=== PATIENT | female | born 1995 | race Asian ===

== ENCOUNTER 2017-10-11 02:01 | Emergency (ER) | payer OTHER ==
[2017-10-11 02:16] VITALS: BP 129/82
[2017-10-11 02:27] LABS: HCG UR QUAL NEGATIVE
--- NOTE | 2017-10-11 02:40 | ED Physician Documentation ---
History of Present Illness - Stated complaint Stated Complaint: FEMALE - Chief complaint Chief Complaint: Abd Pain - Additonal information Additional information: 21-year-old female with no significant past medical history presents to the emergency department with irregular menses. She normally gets her. On the regular schedule this month her periods stopped 4 days ago and then seems to have begun again today. She reports that it is a usual amount of bleeding no worse than the regular. And she has some mild cramping. Review of Systems Constitutional: denies: Fever, Fatigue Throat: reports: Other (Recent antibiotics for tooth infection) GI: denies: Abdominal Pain, Nausea, Vomiting : reports: Irregular menses PD PAST MEDICAL HISTORY - Past Medical History Past Medical History: No - Past Surgical History Past Surgical History: No - Present Medications Home Medications: Ambulatory Orders Medication Instructions Recorded Confirmed Ibuprofen [Motrin] 800 mg PO Q8H PRN #30 tablet 09/28/16 10/11/17 - Allergies Allergies/Adverse Reactions: Allergies Allergy/AdvReac Type Severity Reaction Status Date / Time No Known Drug Allergies Allergy Verified 10/11/17 02:12 - Social History Does the pt smoke?: No Smoking Status: Never smoker Does the pt have substance abuse?: No PD ED PE NORMAL - Vitals Vital signs reviewed: Yes - General General: Alert and oriented X 3, No acute distress - HEENT HEENT: Other (normal conjunctiva ) - Neck Neck: Supple, no meningeal sign - Cardiac Cardiac: RRR, No murmur - Respiratory Respiratory: Clear bilaterally - Abdomen Abdomen: Normal bowel sounds, Soft, Non tender, Non distended - Female Female : Inhalation Therapy Teacher present (Oma), Other (mild dark blood in vaginal vault, cervix normal appearing) - Derm Derm: Warm and dry - Extremities Extremities: No deformity - Neuro Neuro: Alert and oriented X 3 - Psych Psych: Normal mood, Normal affect Results - Vitals Vitals: Vital Signs - 24 hr 10/11/17 02:13 Temperature 36.7 C Heart Rate 88 Respiratory 16 Rate Blood Pressure 129/82 H O2 Saturation 100 Oxygen O2 Source Room air - Labs Labs: Laboratory Tests 10/11/17 02:15 Ur Specific [place] <=1.005 Urine HCG, Qual NEGATIVE PD MEDICAL DECISION MAKING - ED course ED course: Irregular menses, without symptoms of anemia. Normal pelvic exam. Did not obtain swabs given reduced sensitivity when bleeding. I discussed this with the patient. Negative test Discussed with her return precautions for severe bleeding or pain, and follow- up with primary care or gynecology if symptoms do not resolve. Departure - Departure Disposition: 01 Home, Self Care Clinical Impression: Irregular uterine bleeding Condition: Good Instructions: ED Bleed Irregular Vaginal Comments: It is not clear why you are having menstrual bleeding that is irregular this month. This can be related to hormone changes or problems with your uterus. If your bleeding stops and your periods return to normal next month you do not need any specific follow-up if you continue to have bleeding you should follow- up with your primary care doctor or a boiler or engine operator. If you are having severe bleeding Or pain or feeling lightheaded or dizzy or having trouble breathing he should return to the emergency department.
== END 2017-10-11 02:43 | disposition home or self-care (01) ==
LOC: ED 02:01
DX: N92.6 Irregular menstruation, unspecified (principal)
CPT/HCPCS: 81025; 99283

== ENCOUNTER 2017-12-28 16:48 | Emergency (ER) | payer OTHER ==
[2017-12-28 17:00] VITALS: BP 107/69
[2017-12-28 17:33] LABS: BASOPHILS # (AUTO) 0.1 10^3/uL (0.0-0.1); BASOPHILS % (AUTO) 0.8 %; EOSINOPHILS # (AUTO) 0.3 10^3/uL (0.0-0.7); EOSINOPHILS % (AUTO) 3.9 %; HGB - HEMOGLOBIN 13.4 g/dL (12.0-16.0); LYMPHOCYTES # (AUTO) 2.2 10^3/uL (1.5-3.5); LYMPHOCYTES % (AUTO) 26.6 %; MEAN CORPUSCULAR HEMOGLOBIN 30.1 pg (27.0-31.0); MEAN CORPUSCULAR HGB CONC 33.4 g/dL (32.0-36.0); MEAN PLATELET VOLUME 8.4 fL (7.9-10.8); MONOCYTES % (AUTO) 12.2 %; NEUTROPHILS # (AUTO) 4.6 10^3/uL (1.5-6.6); NEUTROPHILS % (AUTO) 56.5 %; PLT - PLATELET COUNT 317 10^3/uL (130-450); RED BLOOD COUNT 4.47 10^6/uL (4.20-5.40); RED CELL DISTRIBUTION WIDTH 12.7 % (12.0-15.0); WHITE BLOOD COUNT 8.2 x10^3/uL (4.8-10.8)
[2017-12-28 17:41] LABS: ALBUMIN 4.5 g/dL (3.2-5.5); ALBUMIN/GLOBULIN RATIO 1.1 (1.0-2.2); BILIRUBIN,TOTAL 0.4 mg/dL (0.2-1.0); CALCIUM 9.7 mg/dL (8.5-10.3); CREATININE 0.6 mg/dL (0.4-1.0); TOTAL PROTEIN 8.5 g/dL (6.7-8.2)
--- NOTE | 2017-12-28 17:42 | ED Physician Documentation ---
History of Present Illness - Stated complaint Stated Complaint: DIARRHEA - Chief complaint Chief Complaint: Abd Pain - History obtained from History obtained from: Patient, Family - History of Present Illness Timing: How many days ago (3) Pain level max: 5 Pain level now: 4 Quality: cramping. Improved by: nothing Worsened by: eating - Additonal information Additional information: States abd cramping and diarrhea x 3 days. Significant other with same. States feeling fatigued today. Started after eating beef steak a few days ago. Does not use anything for control, is sexually active. Doesn't think she is . Review of Systems Ten Systems: 10 systems reviewed and negative Constitutional: denies: Fever, Chills Ears: denies: Ear pain Nose: denies: Rhinorrhea / runny nose, Congestion Throat: denies: Sore throat Cardiac: denies: Chest pain / pressure Respiratory: denies: Cough GI: denies: Nausea, Vomiting, Hematemesis, Bloody / black stool Skin: denies: Rash Musculoskeletal: denies: Neck pain, Back pain Neurologic: denies: Focal weakness, Numbness, Confused, Altered mental status PD PAST MEDICAL HISTORY - Past Medical History Past Medical History: No - Past Surgical History Past Surgical History: No - Present Medications Home Medications: Ambulatory Orders Medication Instructions Recorded Confirmed Dicyclomine [Bentyl] 10 mg PO QID PRN #20 capsule 12/28/17 - Allergies Allergies/Adverse Reactions: Allergies Allergy/AdvReac Type Severity Reaction Status Date / Time No Known Drug Allergies Allergy Verified 10/11/17 02:12 - Social History Does the pt smoke?: No Smoking Status: Never smoker Does the pt drink ETOH?: No Does the pt have substance abuse?: No - Immunizations Immunizations are current?: Yes PD ED PE NORMAL - Vitals Vital signs reviewed: Yes - General General: Alert and oriented X 3, No acute distress, Well developed/nourished - HEENT HEENT: Moist mucous membranes - Neck Neck: Supple, no meningeal sign - Cardiac Cardiac: RRR, Strong equal pulses - Respiratory Respiratory: No respiratory distress, Clear bilaterally - Abdomen Abdomen: Normal bowel sounds, Soft, Non tender, Non distended - Back Back: No CVA TTP - Derm Derm: Warm and dry, No rash - Neuro Neuro: Alert and oriented X 3 - Psych Psych: Normal mood, Normal affect Results - Vitals Vitals: Vital Signs - 24 hr 12/28/17 16:58 Temperature 37.0 C Heart Rate 82 Respiratory 16 Rate Blood Pressure 107/69 O2 Saturation 100 Oxygen O2 Source Room air - Labs Labs: Laboratory Tests 12/28/17 12/28/17 12/28/17 17:15 17:23 17:23 WBC 8.2 RBC 4.47 Hgb 13.4 Hct 40.2 MCV 90.0 MCH 30.1 MCHC 33.4 RDW 12.7 Plt Count 317 MPV 8.4 Neut # 4.6 Lymph # 2.2 [place] # 1.0 Eos # 0.3 Baso # 0.1 Absolute Nucleated RBC 0.00 Nucleated RBC % 0.1 Sodium 137 Potassium 3.8 Chloride 100 L Carbon Dioxide 24 Anion Gap 13.0 BUN 14 Creatinine 0.6 Estimated GFR (MDRD) 123 Glucose 82 Calcium 9.7 Total Bilirubin 0.4 AST 28 ALT 22 Alkaline Phosphatase 63 Total Protein 8.5 H Albumin 4.5 Globulin 4.0 Albumin/Globulin Ratio 1.1 Lipase 14 L Urine Color YELLOW Urine Clarity CLEAR Urine pH 5.5 Ur Specific [place] >=1.030 H Urine Protein NEGATIVE Urine Glucose (UA) NEGATIVE Urine Ketones NEGATIVE Urine Occult Blood NEGATIVE Urine Nitrite NEGATIVE Urine Bilirubin NEGATIVE Urine Urobilinogen 0.2 (NORMAL) Ur Leukocyte Esterase NEGATIVE Ur Microscopic Review NOT INDICATED Urine Culture Comments NOT INDICATED Urine HCG, Qual NEGATIVE PD MEDICAL DECISION MAKING - ED course Complexity details: reviewed results, re-evaluated patient, considered differential, d/w patient, d/w family ED course: Patient is a 22-year-old female who presents to the emergency department with diarrhea for the past few days. Her significant other is sick with same and has the same symptoms. No fevers. No vomiting. No recent antibiotics or travel. She is well-appearing, nontoxic. Well-hydrated. Tolerating p.o. without difficulty. Given Levsin for cramping. Will continue supportive care and follow-up with her doctor. Patient counseled regarding signs and symptoms for which I believe and urgent re-evaluation would be necessary. Patient with good understanding of and agreement to plan and is comfortable going home at this time This document was made in part using voice recognition software. While efforts are made to proofread this document, sound alike and grammatical errors may occur. Departure - Departure Disposition: 01 Home, Self Care Clinical Impression: Dehydration Diarrhea Qualifiers: Diarrhea type: unspecified type Qualified Code(s): R19.7 - Diarrhea, unspecified Condition: Good Instructions: ED Diarrhea Viral Follow-Up: your,doctor in 1 week if not better [Other] Prescriptions: Dicyclomine [Bentyl] 10 mg PO QID PRN #20 capsule PRN Reason: Abdominal Pain Comments: Return if you worsen. This should improve over the next few days. Drink plenty of fluids and rest. Discharge Date/Time: 12/28/17 18:04
[2017-12-28 17:49] LABS: BILIRUBIN,URINE NEGATIVE (NEGATIVE); GLUCOSE, URINE (UA) NEGATIVE (NEGATIVE); KETONES,URINE (UA) NEGATIVE (NEGATIVE); LEUKOCYTE ESTERASE, URINE NEGATIVE (NEGATIVE); NITRITE,URINE NEGATIVE (NEGATIVE); OCCULT BLOOD,URINE NEGATIVE (NEGATIVE); PH,URINE 5.5 PH (5.0-7.5); PROTEIN,URINE NEGATIVE (NEGATIVE); UROBILINOGEN,URINE 0.2 (NORMAL) E.U./dL (NORMAL)
[2017-12-28 17:51] LABS: CLARITY,URINE CLEAR (CLEAR)
[2017-12-28 17:53] LABS: HCG UR QUAL NEGATIVE
[2017-12-28] MEDS ORDERED: HYOSCYAMINE SL 0.125 MG TABLET SL STA (17:55)
== END 2017-12-28 18:04 | disposition home or self-care (01) ==
LOC: ED 16:48
DX: E86.0 Dehydration (principal); R19.7 Diarrhea, unspecified
CPT/HCPCS: 36415; 80053; 81003; 81025; 83690; 85025; 99283; 99284; A9270; 81001; 87086

== ENCOUNTER 2018-04-10 08:27 | Emergency (ER) | payer OTHER ==
--- NOTE | 2018-04-10 08:42 | ED Physician Documentation ---
PD HPI ABD PAIN - Stated complaint Stated Complaint: ABD PX - Chief complaint Chief Complaint: Abd Pain - History obtained from History obtained from: Patient - History of Present Illness Timing - onset: Today Timing - details: Gradual onset, Still present, Constant Quality: Cramping, Aching, Pain Location: RLQ Improved by: No: Eating Worsened by: No: Eating Associated symptoms: Nausea. No: Fever, Vomiting, Diarrhea, Constipation, Dysuria, Hematuria, Near syncope / syncope, Vaginal bleeding, Vaginal dc Similar symptoms before: Has not had sx before Recently seen: Not recently seen Review of Systems Constitutional: denies: Fever Nose: denies: Rhinorrhea / runny nose, Congestion Throat: denies: Sore throat Cardiac: denies: Chest pain / pressure, Palpitations Respiratory: denies: Dyspnea, Cough GI: reports: Abdominal Pain (just this morning), Nausea. denies: Vomiting, Constipation, Diarrhea : reports: LMP (1 month ago). denies: Dysuria, Frequency, Discharge, Vaginal bleeding, Missed period Skin: denies: Rash, Lesions Neurologic: denies: Generalized weakness, Focal weakness, Numbness, Near syncope PD PAST MEDICAL HISTORY - Past Medical History Cardiovascular: None Respiratory: None Neuro: None Endocrine/Autoimmune: None - Past Surgical History Past Surgical History: No - Present Medications Home Medications: Ambulatory Orders Medication Instructions Recorded Confirmed Naproxen 375 mg PO BID #15 tablet 04/10/18 Ondansetron Odt [Zofran] 4 mg TL Q6H PRN #10 tablet 04/10/18 Tramadol HCl 50 mg PO Q6H PRN #20 tablet 04/10/18 - Allergies Allergies/Adverse Reactions: Allergies Allergy/AdvReac Type Severity Reaction Status Date / Time No Known Drug Allergies Allergy Verified 04/10/18 08:42 - Social History Does the pt smoke?: No Smoking Status: Never smoker Does the pt drink ETOH?: No Does the pt have substance abuse?: No - Immunizations Immunizations are current?: Yes PD ED PE NORMAL - Vitals Vital signs reviewed: Yes - General General: Alert and oriented X 3, No acute distress, Well developed/nourished - HEENT HEENT: Moist mucous membranes, Pharynx benign - Neck Neck: Supple, no meningeal sign, No adenopathy - Cardiac Cardiac: RRR, No murmur - Respiratory Respiratory: Clear bilaterally - Abdomen Abdomen: Soft, Non distended, No organomegaly, Other (tender RLQ and lower suprapubic area) - Female Female : Deferred - Rectal Rectal: Deferred - Back Back: No CVA TTP - Derm Derm: Normal color, Warm and dry - Neuro Neuro: Alert and oriented X 3, No motor deficit, Normal speech Results - Vitals Vitals: Vital Signs - 24 hr 04/10/18 04/10/18 04/10/18 08:36 12:30 14:50 Temperature 36 C L Heart Rate 77 76 78 Respiratory 16 16 16 Rate Blood Pressure 106/61 98/63 98/51 L O2 Saturation 99 96 96 Oxygen O2 Source Room air - Labs Labs: Laboratory Tests 04/10/18 04/10/18 04/10/18 09:09 10:15 10:15 WBC 7.0 RBC 4.36 Hgb 13.3 Hct 39.9 MCV 91.5 MCH 30.5 MCHC 33.3 RDW 12.5 Plt Count 309 MPV 8.4 Neut # (Auto) 4.5 Lymph # (Auto) 1.8 Page # (Auto) 0.4 Eos # (Auto) 0.2 Baso # (Auto) 0.1 Absolute Nucleated RBC 0.00 Nucleated RBC % 0.0 Sodium 135 Potassium 3.6 Chloride 102 Carbon Dioxide 26 Anion Gap 7.0 BUN 13 Creatinine 0.6 Estimated GFR (MDRD) 123 Glucose 76 Calcium 9.1 Total Bilirubin 0.8 AST 27 ALT 20 Alkaline Phosphatase 69 Total Protein 8.4 H Albumin 4.3 Globulin 4.1 Albumin/Globulin Ratio 1.0 Lipase 33 Urine Color YELLOW Urine Clarity HAZY Urine pH 6.5 Ur Specific [place] 1.020 Urine Protein NEGATIVE Urine Glucose (UA) NEGATIVE Urine Ketones NEGATIVE Urine Occult Blood NEGATIVE Urine Nitrite NEGATIVE Urine Bilirubin NEGATIVE Urine Urobilinogen 0.2 (NORMAL) Ur Leukocyte Esterase TRACE H Urine RBC None Seen Urine WBC 11-25 H Ur Squamous Epith Cells FEW Squamous Urine Bacteria Moderate H Ur Microscopic Review INDICATED Urine Culture Comments INDICATED Urine HCG, Qual NEGATIVE - Rads (name of study) pelvic U/S Radiology: Prelim report reviewed (normal; no acute process) RLQ U/S limited Radiology: Prelim report reviewed (appendix not visualized; no secondary changes seen) A/P CT Radiology: Prelim report reviewed (normal appendix. possible cyst on ovary. no other acute process. ) PD MEDICAL DECISION MAKING - ED course Complexity details: reviewed results (got U/S initially and normal pelvis and did not see the appendix. Talked with patient and recheck abd is still tneder RLQ, so shared decision of CT scan. This showed normal appendix. So not an answer for the cause of the pain. ), considered differential, d/w patient - Sepsis Event Vital Signs: Vital Signs - 24 hr 04/10/18 04/10/18 04/10/18 08:36 12:30 14:50 Temperature 36 C L Heart Rate 77 76 78 Respiratory 16 16 16 Rate Blood Pressure 106/61 98/63 98/51 L O2 Saturation 99 96 96 Oxygen O2 Source Room air Departure - Departure Disposition: 01 Home, Self Care Clinical Impression: Abdominal pain Qualifiers: Abdominal location: right lower quadrant Qualified Code(s): R10.31 - Right lower quadrant pain Condition: Stable Record reviewed to determine appropriate education?: Yes Instructions: ED Abdominal Pain Unkn Cause Follow-Up: [facility] [Provider Group] Prescriptions: Naproxen 375 mg PO BID #15 tablet Ondansetron Odt [Zofran] 4 mg TL Q6H PRN #10 tablet PRN Reason: Nausea / Vomiting Tramadol HCl 50 mg PO Q6H PRN #20 tablet PRN Reason: Pain Comments: Frequent fluids and bland food today. There is not a clear answer for the cause of your pain today. The tests seem to exclude significant or serious causes. At this point I try some anti-inflammatories such as naproxen or ibuprofen 2-3 times a day for the next several days. Add ondansetron if needed for nausea. Add tramadol if needed for worse pain. Recheck if not better over the next couple of days and return sooner if worsening symptoms or other symptoms develop. Forms: Activity restrictions Discharge Date/Time: 04/10/18 14:45
[2018-04-10] MEDS ORDERED: SODIUM CHLORIDE 0.9% 1,000 ML IV ONE ×2 (09:17→12:35)
[2018-04-10] MEDS ORDERED: MORPHINE 10 MG/ML VIAL IVP STA (09:18)
[2018-04-10] MEDS ORDERED: ONDANSETRON 4 MG/2 ML VIAL IVP STA ×2 (09:18→14:07)
[2018-04-10 09:50] LABS: BILIRUBIN,URINE NEGATIVE (NEGATIVE); GLUCOSE, URINE (UA) NEGATIVE (NEGATIVE); KETONES,URINE (UA) NEGATIVE (NEGATIVE); LEUKOCYTE ESTERASE, URINE TRACE (NEGATIVE); NITRITE,URINE NEGATIVE (NEGATIVE); OCCULT BLOOD,URINE NEGATIVE (NEGATIVE); PH,URINE 6.5 PH (5.0-7.5); PROTEIN,URINE NEGATIVE (NEGATIVE); UROBILINOGEN,URINE 0.2 (NORMAL) E.U./dL (NORMAL)
[2018-04-10 09:52] LABS: CLARITY,URINE HAZY (CLEAR); HCG UR QUAL NEGATIVE
[2018-04-10 10:09] LABS: BACTERIA,URINE Moderate /HPF (None Seen); RBC,URINE None Seen /HPF (0-5); SQUAMOUS EPITHELIAL CELL,UR FEW Squamous (<= Few)
[2018-04-10 10:23] LABS: BASOPHILS # (AUTO) 0.1 10^3/uL (0.0-0.1); BASOPHILS % (AUTO) 1.1 %; EOSINOPHILS # (AUTO) 0.2 10^3/uL (0.0-0.7); EOSINOPHILS % (AUTO) 3.1 %; HGB - HEMOGLOBIN 13.3 g/dL (12.0-16.0); LYMPHOCYTES # (AUTO) 1.8 10^3/uL (1.5-3.5); LYMPHOCYTES % (AUTO) 26.2 %; MEAN CORPUSCULAR HEMOGLOBIN 30.5 pg (27.0-31.0); MEAN CORPUSCULAR HGB CONC 33.3 g/dL (32.0-36.0); MEAN CORPUSCULAR VOLUME 91.5 fL (81.0-99.0); MEAN PLATELET VOLUME 8.4 fL (7.9-10.8); MONOCYTES # (AUTO) 0.4 10^3/uL (0.0-1.0); NEUTROPHILS # (AUTO) 4.5 10^3/uL (1.5-6.6); NEUTROPHILS % (AUTO) 63.6 %; PLT - PLATELET COUNT 309 10^3/uL (130-450); RED BLOOD COUNT 4.36 10^6/uL (4.20-5.40); RED CELL DISTRIBUTION WIDTH 12.5 % (12.0-15.0)
[2018-04-10 10:36] LABS: ALBUMIN 4.3 g/dL (3.2-5.5); BILIRUBIN,TOTAL 0.8 mg/dL (0.2-1.0); CALCIUM 9.1 mg/dL (8.5-10.3); CREATININE 0.6 mg/dL (0.4-1.0); TOTAL PROTEIN 8.4 g/dL (6.7-8.2)
--- NOTE | 2018-04-10 11:50 | Ultrasound Report ---
Procedure Date: 04/10/2018 Accession Number: [id number] / [id number] Procedure: US - Abdomen Limited CPT Code: FULL RESULT: EXAM: ABDOMEN ULTRASOUND LIMITED CLINICAL HISTORY: Right lower quadrant pain COMPARISON: None. TECHNIQUE: Real-time scanning was performed with static images obtained. FINDINGS: Scanning of the right lower quadrant does not demonstrate the appendix. No abnormal fluid collection is identified. No adenopathy is seen. IMPRESSION: Nonvisualization of the appendix, but no secondary findings of acute appendicitis. RADIA
--- NOTE | 2018-04-10 11:53 | Ultrasound Report ---
Procedure Date: 04/10/2018 Accession Number: [id number] / [id number] Procedure: US - Pelvic w/Transvag+Doppler Ltd CPT Code: FULL RESULT: EXAM: PELVIC ULTRASOUND WITH DOPPLERS Pelvic w/Transvag+Doppler Ltd CLINICAL HISTORY: Right lower quadrant pain COMPARISON: None. TECHNIQUE: Real-time transabdominal and transvaginal scanning, with customer service representative teller static images obtained. Color flow imaging and Doppler spectral analysis was performed to evaluate blood flow to the ovaries given right lower quadrant pain. FINDINGS: Uterus: 7.6 x 5.3 x 5.3 cm, volume 112 cc. Anteverted position. Normal overall size and echotexture. Masses: None. Endometrium: 15 mm. Normal. Cervix: Unremarkable. Right Ovary: 4.4 x 3.4 x 2.4 cm, volume 19 cc. Normal echotexture. Right Ovary: Arterial and venous blood flow are present. Adnexa are unremarkable. Left Ovary: 3.4 x 2.2 x 1.7 cm, volume 7 cc. Normal echotexture. Left Ovary: Arterial and venous blood flow are present. Adnexa are unremarkable. Free Fluid: Small amount. Other: None. IMPRESSION: 1. Normal pelvic ultrasound. 2. Arterial and venous blood flow are present to the ovaries bilaterally. 3. Small amount of free fluid, likely physiologic. RADIA
[2018-04-10] MEDS ORDERED: IOPAMIDOL-300 100 ML VIAL ONE (13:09)
--- NOTE | 2018-04-10 13:30 | CT Report ---
Procedure Date: 04/10/2018 Accession Number: [id number] / [id number] Procedure: CT - Abdomen/Pelvis W/ CPT Code: FULL RESULT: EXAM: CT ABDOMEN AND PELVIS EXAM DATE: 04/10/2018 01:15 PM. CLINICAL HISTORY: RLQ pain today. COMPARISONS: None. TECHNIQUE: Routine helical CT imaging was performed through the abdomen and pelvis. IV contrast: ISOVUE 300 90mL. Enteric contrast: No. Reconstructions: Coronal and sagittal. In accordance with CT protocol optimization, one or more of the following dose reduction techniques were utilized for this exam: automated exposure control, adjustment of mA and/or KV based on patient size, or use of iterative reconstructive technique. FINDINGS: Lung Bases: Unremarkable. Liver: Normal. No masses. Gallbladder/Bile Ducts: Unremarkable. Spleen: Normal. Pancreas: Normal. Adrenal Glands: Normal. Kidneys: Normal. No masses or hydronephrosis. Peritoneal Cavity/Bowel: No bowel obstruction. No acute focal inflammatory change identified. No discrete collection. No bulky adenopathy. No free air. Small amount of free fluid in the pelvis. Appendix is limited in assessment secondary to adjacent bowel loops, although appears to be normal caliber. Pelvic Organs: Urinary bladder appears unremarkable. Mildly dense rounded structure in the right adnexal region, possibly ovarian. Uterus and adnexal structures otherwise appear unremarkable. Small amount of free fluid in the pelvis. Vasculature: No aneurysms or other significant abnormality. Bones: No significant abnormality. Other: None. IMPRESSION: 1. Dense rounded structure in the right adnexal region measuring approximately 2 cm, which may be ovarian. Small amount of free fluid in the pelvis, likely physiologic. Uterus and ovaries would be better assessed with ultrasound, as clinically warranted. 2. Appendix is mildly limited assessment secondary to compressing adjacent bowel loops, although appears to be normal caliber. 3. No bowel obstruction or acute focal inflammatory change identified in the abdomen or pelvis. RADIA
[2018-04-10] MEDS ORDERED: KETOROLAC 60 MG/2 ML VIAL IVP STA (13:35)
[2018-04-10 14:52] VITALS: BP 98/51
[2018-04-10] MEDS ORDERED: IOPAMIDOL-300 100 ML VIAL IVP ONE (16:00)
== END 2018-04-10 14:45 | disposition home or self-care (01) ==
LOC: ED 08:27
DX: R10.31 Right lower quadrant pain (principal); R11.0 Nausea
CPT/HCPCS: 36415; 74177; 76705; 76830; 76856; 80053; 81001; 81025; 83690; 85025; 87077; 87086; 87181; 93976; 96361; 96374; 96375; 96376; 99283; Q9967; 81003

== ENCOUNTER 2018-05-23 14:04 | Emergency (ER) | payer OTHER ==
[2018-05-23 14:13] VITALS: BP 111/70
--- NOTE | 2018-05-23 14:20 | ED Physician Documentation ---
PD HPI FEMALE - Stated complaint Stated Complaint: FEMALE - Chief complaint Chief Complaint: UTI - History obtained from History obtained from: Patient, Family (spouse) - History of Present Illness Timing - onset: Last night Timing - details: Still present Associated symptoms: Dysuria, Urinary frequency Similar symptoms before: Diagnosis (Similar symptoms in the past with UTI.) - Additional information Additional information: The patient is a 22-year-old female who presents with dysuria and frequency of urination that started last night. She denies fever, nausea or vomiting. Her last menstrual period was 1-1/2 weeks ago. She was treated for urinary tract infection 5 weeks ago when her urine culture grew out Citrobacter that was sensitive to all antibiotics commonly used for UTI, except for nitrofurantoin. Review of Systems Constitutional: denies: Fever Nose: denies: Congestion Throat: denies: Sore throat Respiratory: denies: Dyspnea, Cough GI: denies: Abdominal Pain, Nausea, Vomiting : reports: Dysuria, Frequency, LMP (1.5 weeks ago.) Skin: denies: Rash Musculoskeletal: denies: Back pain Neurologic: denies: Headache PD PAST MEDICAL HISTORY - Past Medical History Cardiovascular: None Respiratory: None Neuro: None Endocrine/Autoimmune: None - Past Surgical History Past Surgical History: No - Present Medications Home Medications: Ambulatory Orders Medication Instructions Recorded Confirmed Naproxen 375 mg PO BID #15 tablet 04/10/18 Ondansetron Odt [Zofran] 4 mg TL Q6H PRN #10 tablet 04/10/18 Tramadol HCl 50 mg PO Q6H PRN #20 tablet 04/10/18 Phenazopyridine HCl [Pyridium] 200 mg PO TID PRN #10 tablet 05/23/18 cephALEXin [Cephalexin] 500 mg PO TID #15 tablet 05/23/18 - Allergies Allergies/Adverse Reactions: Allergies Allergy/AdvReac Type Severity Reaction Status Date / Time No Known Drug Allergies Allergy Verified 05/23/18 14:13 - Social History Does the pt smoke?: No Smoking Status: Never smoker Does the pt drink ETOH?: No Does the pt have substance abuse?: No - Immunizations Immunizations are current?: Yes PD ED PE NORMAL - Vitals Vital signs reviewed: Yes (normal) - General General: Alert and oriented X 3, Well developed/nourished - HEENT HEENT: Atraumatic, Pharynx benign - Respiratory Respiratory: No respiratory distress - Abdomen Abdomen: Soft, Other (Mild suprapubic tenderness to palpation, without rebound or guarding.) - Back Back: No CVA TTP - Derm Derm: No rash - Neuro Neuro: Alert and oriented X 3, Normal speech Results - Vitals Vitals: Oxygen O2 Source Room air - Labs Labs: Microbiology 05/23/18 14:37 Urine Culture - Preliminary Urine,Clean Catch Escherichia Coli Laboratory Tests 05/23/18 14:37 Urine Color YELLOW Urine Clarity CLOUDY Urine pH 6.0 Ur Specific [place] 1.025 Urine Protein 30 H Urine Glucose (UA) NEGATIVE Urine Ketones TRACE Urine Occult Blood LARGE H Urine Nitrite POSITIVE H Urine Bilirubin NEGATIVE Urine Urobilinogen 0.2 (NORMAL) Ur Leukocyte Esterase LARGE H Urine RBC 6-10 H Urine WBC >25 H Urine WBC Clumps PRESENT Ur Squamous Epith Cells RARE Squamous Urine Bacteria Many H Ur Microscopic Review INDICATED Urine Culture Comments INDICATED Urine HCG, Qual NEGATIVE PD MEDICAL DECISION MAKING - ED course Complexity details: reviewed old records, reviewed results, re-evaluated patient , considered differential, d/w patient, d/w family ED course: The patient's presentation is most consistent with urinary tract infection, with positive urinalysis. Culture and sensitivity are pending. Her presentation does not suggest pyelonephritis nor sepsis. Treatment in the emergency department included administration of cephalexin 500 mg orally. I discussed with her and her the diagnosis, antibiotic treatment and outpatient follow-up, as well as potentially worrisome signs or symptoms that should prompt reevaluation in the emergency department. - Sepsis Event Vital Signs: Oxygen O2 Source Room air Departure - Departure Disposition: 01 Home, Self Care Clinical Impression: Cystitis Condition: Stable Instructions: ED UTI Cystitis Female Follow-Up: [facility] [Provider Group] Prescriptions: cephALEXin [Cephalexin] 500 mg PO TID #15 tablet Phenazopyridine HCl [Pyridium] 200 mg PO TID PRN #10 tablet PRN Reason: pain with urination Comments: Drink plenty of fluids, including cranberry juice. Take cephalexin 3 times daily as prescribed. He can use Pyridium as prescribed if needed for painful urination. He can use Tylenol or ibuprofen if needed for fever or discomfort. Follow up with your primary physician within 2 weeks. Call to schedule appointment. Return to the emergency department if you develop increasing abdominal pain, persistent vomiting, fever with shaking chills, or otherwise worsening symptoms. Discharge Date/Time: 05/23/18 15:04
[2018-05-23] MEDS ORDERED: cephALEXin 250 MG CAPSULE PO STA (14:40)
[2018-05-23] MEDS ORDERED: PHENAZOPYRIDINE 100 MG TABLET PO STA (14:40)
[2018-05-23 14:54] LABS: BILIRUBIN,URINE NEGATIVE (NEGATIVE); GLUCOSE, URINE (UA) NEGATIVE (NEGATIVE); KETONES,URINE (UA) TRACE mg/dL (NEGATIVE); LEUKOCYTE ESTERASE, URINE LARGE (NEGATIVE); NITRITE,URINE POSITIVE (NEGATIVE); OCCULT BLOOD,URINE LARGE (NEGATIVE); PROTEIN,URINE 30 mg/dL (NEGATIVE); UROBILINOGEN,URINE 0.2 (NORMAL) E.U./dL (NORMAL)
[2018-05-23 14:57] LABS: CLARITY,URINE CLOUDY (CLEAR)
[2018-05-23 14:58] LABS: HCG UR QUAL NEGATIVE
[2018-05-23 15:13] LABS: BACTERIA,URINE Many /HPF (None Seen); SQUAMOUS EPITHELIAL CELL,UR RARE Squamous (<= Few); WBC CLUMPS,URINE PRESENT
== END 2018-05-23 15:04 | disposition home or self-care (01) ==
LOC: ED 14:04
DX: N30.00 Acute cystitis without hematuria (principal)
CPT/HCPCS: 81001; 81025; 87086; 87181; 99283; A9270; 81003